=== PATIENT | female | born 1980 | race Caucasian/White ===

== ENCOUNTER 2018-07-21 14:00 | Emergency (ER) | payer OTHER ==
[~2018-07-21] VITALS: Ht 157.5 cm; Wt 113.4 kg
[~2018-07-21 14:00] MED LIST: CLARITIN5 MG; SINGULAIR10 MG; ZITHROMAX TRI-500 MG PO
== END 2018-07-21 22:01 | disposition home or self-care (01) ==
LOC: ER 14:00
DX: J45.901 Unspecified asthma with (acute) exacerbation (principal)

== ENCOUNTER 2018-09-30 09:08 | Emergency (ER) | payer OTHER ==
[~2018-09-30] VITALS: Ht 157.5 cm; Wt 113.4 kg
== END 2018-09-30 11:30 | disposition home or self-care (01) ==
LOC: ER 09:08
DX: B34.9 Viral infection, unspecified (principal)